=== PATIENT | male | born 1950 | race Caucasian/White ===

== ENCOUNTER 2018-07-02 14:47 | Inpatient (IN) | payer OTHER, MEDICARE ==
[~2018-07-02] VITALS: Ht 177.8 cm; Wt 119.0 kg
--- NOTE | ~2018-07-02 | D ---
[facility] [place] [address] [address] DISCHARGE SUMMARY Name: LAYNE BADILLO Room #: 218-P ADM IN M.R.#: [id number] Admission: 07/02/18 Attend Phys: Amanuel Segura MD, Discharge: Date of : 50 Report #: [id number] THIS REPORT FOR: //name// CC: Amanuel Segura Physician staff DELFINO Burroughs [facility]SE: The patient is a 68-year-old male patient of Dr. Burroughs's who was found to have noninvasively high-grade carotid stenosis by Dr. Burroughs, subsequently sent and I admitted him because of the velocity of greater than 500. He was initially placed on anticoagulation, taken to the catheterization lab. He had significant claudication issues also on the left buttock and some labile hypertension. Creatinine was 1.5. He underwent a carotid angiography, left renal stent and left common iliac stent for high-grade lesions. With minimal contrast, however, I did attempt intervention through a SETH to LAD, which was subtotaled in the distal third. I was unsuccessful there, but he had a large graft that was widely patent filling a diagonal and a large OM1, OM2. The PDA was occluded and the graft to the PDA was occluded. This was collaterally filled via the LAD, although was filled by bridging collaterals. Unfortunately, he did develop some ATN secondary to the contrast. Creatinine up to 3.2 and waiting for tomorrow's lab work. Once this heads down, we will discharge him on aspirin, Plavix and metoprolol 50; we are holding losartan currently, insulin, atorvastatin 40 and primidone 50 mg at night, Celexa, amlodipine 5; plus minus diuretic. For mild pulmonary venous congestion, was given IV Lasix, has improved his renal output tonight. I am expecting possible discharge in the a.m. He will be seen by my partner, Dr. Estrada. We are then scheduled for Dr. Palencia to perform carotid endarterectomy approximately 2 weeks. DISCHARGE DIAGNOSES: 1. High-grade left carotid stenosis ____ carotid endarterectomy in 2 weeks. 2. Coronary artery disease with prior coronary artery bypass graft and attempted angioplasty through left internal mammary artery to left anterior descending to a subtotal vessel, not successful. See above anatomy. 3. Mild ischemic cardiomyopathy. 4. Acute tubular necrosis secondary to contrast. 5. Hypertension with renal artery stenosis, status post right renal stent. 6. Peripheral vascular disease with left iliac stent placed. 7. Diabetes. RECOMMENDATIONS AND PLAN: As stated above, we will slowly reinstitute BILL, ARB that would be after carotid endarterectomy. Further recommendations per Renal. Carotid endarterectomy scheduled for approximately 2 weeks. We will continue dual antiplatelet therapy and surgery will be performed on dual antiplatelet therapy. [facility] [address] [place] [address] DISCHARGE SUMMARY Name: LAYNE BADILLO Room #: 218-P [facility] IN M.R.#: [id number] Admission: 07/02/18 Attend Phys: Amanuel Segura MD, Discharge: Date of : 50 Report #: [id number] Thank you for asking me to assist in this patient's care. By: 1730 1802 Amanuel Segura MD, FACC /nt
[2018-07-02 15:15] VITALS: BP 114/72
[2018-07-02 15:39] LABS: HEMATOCRIT 35.4 % (42.0-52.0); HEMOGLOBIN 12.3 gm/dL (14.0-18.0); MCH 31.6 pg (26.0-34.0); MCHC 34.8 g/dL (28.0-37.0); RBC 3.89 mil/uL (4.50-6.00); RDW 16.1 % (10.5-14.5); WBC 6.3 thou/uL (4.0-11.0)
[2018-07-02 15:52] LABS: ALBUMIN 3.7 g/dL (3.4-5.0); CALCIUM 9.2 mg/dL (8.5-10.1); CREATININE 1.5 mg/dL (0.7-1.3); POTASSIUM 4.5 mmol/L (3.5-5.1); TOTAL BILIRUBIN 0.9 mg/dL (<0.1-1.0); TOTAL PROTEIN 8.1 g/dL (6.4-8.2)
[2018-07-02] MEDS ORDERED: LEVEMIR SUBQ (16:28)
[2018-07-02] MEDS ORDERED: NOVOLOG100 UNIT/1 SUBQ (16:31)
[2018-07-02] MEDS ORDERED: NEURONTIN 300300 M1 PO (16:33)
[2018-07-02] MEDS ORDERED: LOPRESSOR50 PO (16:34)
[2018-07-02] MEDS ORDERED: PLAVIX 75 MG TA75 M1 PO (16:36)
[2018-07-02] MEDS ORDERED: POTASSIUM20 PO (16:36)
[2018-07-02] MEDS ORDERED: COZAAR 25 MG TA25 M1 PO (16:37)
[2018-07-02] MEDS ORDERED: LASIX 40 MG TAB40 M2 PO (16:38)
[2018-07-02] MEDS ORDERED: ATORVASTATIN CA40 MG PO (16:39)
[2018-07-02] MEDS ORDERED: CELEXA20 MG PO (16:39)
[2018-07-02] MEDS ORDERED: MYSOLINE50 MG PO (16:40)
[2018-07-02] MEDS ORDERED: NITROGLYCERIN0.4 MG SUBLING (16:40)
[2018-07-02] MEDS ORDERED: COLACE100 MG PO (16:41)
--- NOTE | 2018-07-02 17:38 | NUR ---
PT ARRIVED TO THE UNIT AT APPROX 1550 WITH BELONGINGS AND WITH DAUGHTER. PT AOX4, VSS, PT UP STANDYBY ASSIST TO AD RENAN. NO C/O PAIN. DENIES CHEST PAIN. NO SIGNS OF CARDIAC OR RESP DISTRESS NOTED. O2 SATS WNL ON ROOM AIR. IV PUT IN, TELEMETRY PUT ON, ADMIT STRIP PRINTED AND DOCUMENTED. WILL ACKNOWLEDGE AND IMPLEMENT ORDERS. WILL CONTINUE TO MONITOR.
--- NOTE | 2018-07-02 19:42 | NUR ---
PT CONTINUES TO BE AOX4, VSS, NO C/O PAIN, DENIES CHEST PAIN. NO S/SX OF DISTRESS. PT C/O SOA, O2 PUT ON 2L, PT UP TO SIDE OF BED, PT DID NOT C/O SOA ONCE ON SIDE OF BED. PHYSICIAN PAGED FOR ORDERS, STILL AWAITING RESPONSE- NIGHT NURSE AWARE. PLAN IS FOR PT TO HAVE CAROTID ANGIOGRAPHY 07/03, CONSENTS SIGNED. WILL CONTINUE TO MONITOR AND FOLLOW POC.
[2018-07-02 20:00] VITALS: BP 153/50
[2018-07-02 23:58] VITALS: BP 122/57
[2018-07-03 03:10] VITALS: BP 131/41
--- NOTE | 2018-07-03 03:54 | NUR ---
ASSUMED PT CARE AT 1900. PT A/OX4, VITAL SIGNS STABLE, ASSESSMENT CHARTED. NO COMPLAINTS OF CHEST PAIN. PT COMPLAINED OF SOME LE PAIN/NEUROPATHY. TYLENOL AND GABAPENTIN WAS GIVEN WHICH SEEMED TO HELP. PT RESTED WELL THROUGH THE NIGHT. CONSENTS SIGNED FOR ANGIOPLASTY. PROGRESSING TOWARD PLAN OF CARE. WILL CONTINUE TO MONITOR.
[2018-07-03 05:56] LABS: CALCIUM 8.4 mg/dL (8.5-10.1); CREATININE 1.5 mg/dL (0.7-1.3)
[2018-07-03 08:00] VITALS: BP 149/69
--- NOTE | 2018-07-03 08:25 | EKG ---
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1950 Requested By: Wendy Willett Order Number: [id number] MD: Hari Farmer Measurements Intervals [place] Rate: 63 P: 71 NE: 175 QRS: 9 QRSD: 98 T: 30 QT: 458 QTc: 469 Interpretive Statements Sinus rhythm Multiple ventricular premature complexes Abnormal R-wave progression, late transition Inferior infarct, old Baseline wander in lead(s) V2,V3 No previous ECG available for comparison Electronically Signed On 07-03-2018 8:25:21 MANAGER CASE by Hari Farmer [email or web address] <ELECTRONICALLY SIGNED> By: Hari Farmer MD 07/03/18 0825 6 6 Hari Farmer MD /CORY
--- NOTE | 2018-07-03 09:19 | 2DMMODE ---
[facility] [address] [place] [address] 2 D/M-MODE ECHOCARDIOGRAM Name: LAYNE BADILLO Room #: 218-P ADM IN M.R.#: [id number] Admission: 07/02/18 Attend Phys: Amanuel Segura, Discharge: Date of : 50 Date of Service: 07/03/1818 Report #: [id number] THIS REPORT FOR: //name// APPROVED REPORT Study performed: 07/03/2018 08:14:00 EXAM: Comprehensive 2D, Doppler, and color-flow Echocardiogram Patient Location: Bedside Room #: 218 Status: routine BSA: 2.41 HR: 62 bpm BP: 131/41 mmHg Other Information Study Quality: Fair Indications CAD Hypertension/HDD Echo Enhancing Agent Indication: Endocardial border delineation Agent(s) / Amount(s) Used: Optison 3 cc 2D Dimensions IVSd: 15.31 (7-11mm) LVOT Diam: 19.64 (18-24mm) LVDd: 41.41 mm PWd: 13.57 (7-11mm) Ascending Ao: 35.54 (22-36mm) LVDs: 29.65 (25-40mm) Aortic Root: 27.33 mm Aortic Valve AoV Peak Mango.: 2.31 m/s AO Peak Gr.: 21.35 mmHg LVOT Max P.39 mmHg AO Mean Gr.: 13.96 mmHg LVOT Mean P.63 mmHg AO V2 Mean: 1.62 m/s LVOT Max V: 0.89 m/s AO V2 VTI: 69.17 cm LVOT Mean V: 0.58 m/s GERRY (VTI): 1.04 cm2 LVOT V1 VTI: 23.77 cm GERRY Vmax: 1.17 cm2 SV (LVOT): 72.01 mL Pulmonary Valve PV Peak Mango.: 0.91 m/s PV Peak Gr.: 3.29 mmHg [facility] [address] [address] 2 D/M-MODE ECHOCARDIOGRAM Name: LAYNE BADILLO Room #: 218-P ADM IN M.R.#: [id number] Admission: 07/02/18 Attend Phys: Amanuel Segura, Discharge: Date of : 50 Date of Service: 07/03/18 0918 Report #: [id number] Tricuspid Valve TR Peak Mango.: 2.09 m/s TR Peak Gr.: 17.53 mmHg PA Pressure: 18.00 mmHg Left Ventricle The left ventricle is normal size. There is normal LV segmental wall motion. Moderate concentric left ventricular hypertrophy. The left ventricular systolic function is normal. The left ventricular ejection fraction is within the normal range. LVEF is 55-60%. This study is not technically sufficient to allow evaluation of the LV diastolic function. Right Ventricle Right ventricle is not well visualized. Right ventricular systolic function is grossly normal. Atria Left atrium is dilated. Right atrium is dilated. Aortic Valve Bioprosthetic aortic valve is present. No aortic regurgitation is present. There is no aortic valvular stenosis. Mitral Valve The mitral valve is normal in structure. Mild mitral regurgitation. No evidence of mitral valve stenosis. Tricuspid Valve The tricuspid valve is normal in structure. There is trace tricuspid regurgitation. Estimated PAP 18 mmHg. Plus the right atrial pressure. There is no pulmonary hypertension. Pulmonic Valve The pulmonary valve is normal in structure. Trace pulmonic regurgitation. Great Vessels The aortic root is normal in size. IVC is not well visualized. [facility] [address] [place] [address] 2 D/M-MODE ECHOCARDIOGRAM Name: LAYNE BADILLO Room #: 218-P ADM IN M.R.#: [id number] Admission: 07/02/18 Attend Phys: Amanuel Segura, Discharge: Date of : 50 Date of Service: 07/03/18 0918 Report #: [id number] Pericardium There is no pericardial effusion. <Conclusion> The left ventricle is normal size. Moderate concentric left ventricular hypertrophy. LVEF is 55-60%. This study is not technically sufficient to allow evaluation of the LV diastolic function. Right ventricle is not well visualized. Left atrium is dilated. Right atrium is dilated. No aortic regurgitation is present. Mild mitral regurgitation. There is trace tricuspid regurgitation. Estimated PAP 18 mmHg. Plus the right atrial pressure. There is no pulmonary hypertension. The aortic root is normal in size. There is no pericardial effusion. <ELECTRONICALLY SIGNED> By: Amanuel Segura MD, FACC 07/03/18917 7 7 Amanuel Segura MD, FACC /INF
[2018-07-03 12:14] VITALS: BP 132/56
[2018-07-03 17:49] VITALS: BP 160/62
[2018-07-03 19:23] VITALS: BP 111/50
--- NOTE | 2018-07-03 20:56 | NUR ---
ASSUMED CARE OF PT AT SHIFT CHANGE. ASSESSMENTS CHARTED, MEDS GIVEN PER JUL. PT AOX4, VSS, NO C/O PAIN. DENIES CHEST PAIN. PT ARRIVED BACK TO UNIT AT APPROX 1800. VSS, O2 SATS 70S-80S, NO C/O SOA, LUNGS SOUNDED WHEEZY. NOTIFIED, ORDERS RECEIVED. O2 SATS BACK UP TO 90S, LUNGS NO LONGER WHEEZY, PT DENIES ANY CONCERNS, NO SIGNS OF ANY DISTRESS NOTED. URINE OUTPUT ADEQUATE POST PROCEDURE. GROIN SITE CDI, NO HEMATOMA. WILL CONTINUE TO MONITOR AND FOLLOW POC. NO FURTHER NEEDS AT THIS TIME.
[2018-07-04 00:16] VITALS: BP 138/59
--- NOTE | 2018-07-04 03:50 | NUR ---
ASSUMED CARE 1899. VSS. ASSESSMENT CHARTED. PT DENIES CP, SOA, OR ANY CONCERNS. PT HAD HEADACHE EARLY THIS AM RATED 2/10, TYLENOL PER EMAR GIVEN. DAUGHTER AT BEDSIDE THROUGHOUT NIGHT, PT SLEEPING WELL. 2 L NC, CPAP AT NIGHT, LUNGS CL/DIM. VOIDING WELL PER URINAL. R GROIN CDI, NO HEMATOMA. PLAN FOR LABS THIS AM. WILL CONTINUE TO MONITOR AND WITH POC.
[2018-07-04 03:59] LABS: CALCIUM 8.7 mg/dL (8.5-10.1); CREATININE 1.7 mg/dL (0.7-1.3); POTASSIUM 4.6 mmol/L (3.5-5.1)
[2018-07-04 04:02] LABS: HEMATOCRIT 31.4 % (42.0-52.0); HEMOGLOBIN 10.7 gm/dL (14.0-18.0); MCHC 34.1 g/dL (28.0-37.0); MCV 90.8 fL (80.0-100.0); RBC 3.46 mil/uL (4.50-6.00); RDW 16.2 % (10.5-14.5); WBC 5.2 thou/uL (4.0-11.0)
[2018-07-04 04:43] VITALS: BP 151/35
[2018-07-04 08:07] VITALS: BP 136/61
[2018-07-04 11:13] LABS: APTT 28.7 Seconds (24.5-32.8); PROTIME 10.6 Seconds (9.3-11.4)
[2018-07-04 12:27] VITALS: BP 157/63
[2018-07-04 12:39] LABS: URINE BILIRUBIN NEGATIVE (Negative); URINE BLOOD TRACE (Negative); URINE CLARITY CLEAR; URINE COLOR YELLOW; URINE GLUCOSE-RANDOM* 1+ (Negative); URINE KETONES NEGATIVE (Negative); URINE LEUKOCYTES-REFLEX NEGATIVE (Negative); URINE NITRITE-REFLEX NEGATIVE (Negative); URINE PROTEIN (DIPSTICK) NEGATIVE (Negative); URINE UROBILINOGEN 0.2 E.U./dl (0.2-1.0)
--- NOTE | 2018-07-04 15:11 | NUR ---
ASSUMED CARE OF PT AT SHIFT CHANGE. ASSESSMENTS CHARTED. MEDS GIVEN PER JUL. PT AOX4, NO C/O PAIN, VSS, NO S/SX OF CARDIAC OR RESP DISTRESS NOTED. PT CURRENTLY ON , SATS WNL. PT DESATTED ONCE WHEN UP TO THE BATHROOM, O2 CAME BACK WNL AFTER. PT UP STANDYBY ASSIST, WALKED AROUND THE UNIT A COUPLE OF TIMES THIS SHIFT, TOLERATED WELL. GROIN SITE CONTINUES TO BE CDI, NO HEMATOMA. DAUGHTER AT BEDSIDE THROUGHOUT SHIFT. PT AND FAMILY UPDATED ON POC. WILL CONTINUE TO MONITOR AND FOLLOW POC.
[2018-07-04 17:36] VITALS: BP 163/69
[2018-07-04 19:27] VITALS: BP 167/64
[2018-07-05 04:07] LABS: CALCIUM 8.7 mg/dL (8.5-10.1); CREATININE 2.1 mg/dL (0.7-1.3); POTASSIUM 4.4 mmol/L (3.5-5.1); TOTAL BILIRUBIN 1.2 mg/dL (<0.1-1.0); TOTAL PROTEIN 6.2 g/dL (6.4-8.2)
--- NOTE | 2018-07-05 04:20 | NUR ---
PT. AOX4; NO C/O PAIN; ABLE TO REST DURING THE NIGHT; ASSESSMENT CHARGED; FOLLOWING POC; C-PAP USE DURING THE NIGHT.
[2018-07-05 04:27] VITALS: BP 161/49
[2018-07-05 08:47] VITALS: BP 152/91
--- NOTE | 2018-07-05 10:31 | NUR ---
Nutrition: pt admit with carotid stenosis and in need of L CEA. Hx CABG, PAD, CRI, DM. Seen for BMI 40.8, extreme class 3 obesity. Pt reports decreased appetite over admit, 30 % of meal this am. Encouraged ordering meals as desired. No prior weight change. Pt voices no questions related to diet. Significant hyperglycemia, BG 134-301. SSI. Current heart healthy diet, will add carb controlled. Consider low nutrition risk at this time.
[2018-07-05 10:36] LABS: ABSOLUTE NEUTROPHILS 4.5 thou/uL (1.4-8.2); BASOPHILS 0.6 % (0.0-2.0); EOSINOPHILS 2.6 % (0.0-3.0); HEMATOCRIT 33.4 % (42.0-52.0); HEMOGLOBIN 10.8 gm/dL (14.0-18.0); LYMPHOCYTES 15.5 % (24.0-44.0); MCH 30.2 pg (26.0-34.0); MCHC 32.4 g/dL (28.0-37.0); MCV 93.4 fL (80.0-100.0); MONOCYTES 11.4 % (1.0-8.0); PLATELET COUNT 155 thou/uL (150-400); POLYS 69.9 % (36.0-66.0); RBC 3.58 mil/uL (4.50-6.00); RDW 16.9 % (10.5-14.5); WBC 6.5 thou/uL (4.0-11.0)
--- NOTE | 2018-07-05 11:41 | CATHLAB ---
[facility] [place] [address] INVASIVE PROCEDURE REPORT Name: LAYNE BADILLO Room #: 218-P ADM IN M.R.#: [id number] Admission: 07/02/18 Attend Phys: Amanuel Segura, Discharge: Date of : 50 Date of Service: 07/05/18 1141 Report #: [id number] THIS REPORT FOR: //name// APPROVED REPORT Study performed: 07/03/2018 16:07:52 Patient Details Patient Status: In-Patient Room #: The patient is a 68 year-old male Event Personnel Amanuel Segura Ict Educator, , Cayetano Payne RN, Jaya Carey Monitor, Zoë Prasad RTR, GYMNASTICS INSTRUCTOR Scrub Procedures Performed Left Heart Cath Coronaries, Bypass Grafts [id number] [facility] Supravalvular Aortography Injection [id number] ISVA Indication Chest pain Procedure Narrative A PINNACLE 6FR Sheath #[id number] sheath was inserted into the RFA^. Coronary angiography was performed using coronary diagnostic catheters. The right coronary system was accessed and visualized with a JR4 catheter. The left coronary system was accessed and visualized with a JL4 catheter. An aortogram of the ascending aorta was performed. Closure device was deployed with a 6 Fr MYNXGRIP 6/7F #[id number]. The patient tolerated the procedure well and there were no complications associated with the procedure. There was no hematoma. Intraoperative Conscious Sedation Sedation start time: 16.31 Case end Time: 17.31 Fentanyl 100.0 mcg Versed 2.0 mg Fluoro Time: 22.46 minutes Dose: DAP 64111 cGycm2 2935 mGy Contrast Type and Amount: Visipaque 270 ml Hemodynamics The aortic pressure is 140/62 mmHg with a mean of 71 mmHg. [facility] [place] [address] INVASIVE PROCEDURE REPORT Name: LAYNE BADILLO Room #: 218-P [facility] IN M.R.#: [id number] Admission: 07/02/18 Attend Phys: Amanuel Segura, Discharge: Date of : 50 Date of Service: 07/05/18 1141 Report #: [id number] PCI Technique Lesion Percutaneous coronary intervention was performed on the Unspecified. A LAUNCHER 6FR MOISES #[id number] Guide Catheter was used to engage the ostium. A Luge Wire .014 x 182CM #[id number] Interventional Guidewire was used to cross the lesion. BALLOON DILATION A Balloon catheter Sprinter OTW 2.0 x 15 #[id number] was inserted and inflated up to chloe for seconds. WIRE DIDN'T CROSS Conclusion #1 supravalvular aortogram was performed did not cross the prosthetic aortic valve. Mild aortic insufficiency is noted. Aortic root exhibiting borderline dilatation #2 left main is large and mildly disease giving rise to LAD and circumflex which are essentially occluded #3 LAD occludes after the septal housing specialist and filled via a SETH graft #4 circumflex OM high-grade proximal OM lesion filled via a vein graft severely diseased circumflex small in the AV groove #4 the dominant right coronary artery occluded #5 the graft to the PDA is occluded PDA is filled via the left system collaterals filling predominately through septal perforators #6 LAD is filled via the SETH and then at the distal third is subtotally or totally occluded. This was an attempt at a PTCA. This is a chronic total occlusion with relatively minimal distribution. We'll continue to treat that medically. Is not able to cross this lesion #7 there is a large well preserved vein graft that is a triple sequential diagonal OM1 OM 2. All vessels well preserved. Recommendations and plan. I did attempt limited angioplasty of the LAD through the SETH. This was unsuccessful. Minimal area of distribution so would continue to treat this medically. The triple sequential graft is widely patent. The afognak right and graft to the right are occluded but filled via the left system. LV function noninvasively is only mildly reduced. Patient did have subtotal renal artery stenosis and iliac which were successfully stented. Follow peripheral stent protocol. Patient has [address] [address] INVASIVE PROCEDURE REPORT Name: LAYNE BADILLO Room #: 218-P ADM IN M.R.#: [id number] Admission: 07/02/18 Attend Phys: Amanuel Segura, Discharge: Date of : 50 Date of Service: 07/05/18 1141 Report #: [id number] high-grade carotid stenosis will have carotid endarterectomy one week. <ELECTRONICALLY SIGNED> By: Amanuel Segura MD, [facility] 07/05/18 1141 114 114 Amanuel Segura MD, FAC /INF
[2018-07-05 12:07] VITALS: BP 134/60
[2018-07-05 15:32] VITALS: BP 140/56
[2018-07-05 19:29] VITALS: BP 156/68
[2018-07-06 04:27] VITALS: BP 144/46
[2018-07-06 04:29] LABS: CALCIUM 8.5 mg/dL (8.5-10.1); PHOSPHORUS 5.2 mg/dL (2.5-4.9); POTASSIUM 4.8 mmol/L (3.5-5.1)
[2018-07-06 04:37] LABS: CREATININE 3.2 mg/dL (0.7-1.3)
[2018-07-06 05:19] LABS: PROT/CREAT RATIO 0.5; URINE CREATININE-RANDOM* 132.8 mg/dL
[2018-07-06 08:00] VITALS: BP 146/66
--- NOTE | 2018-07-06 08:16 | NUR ---
PT. AOX4; NO C/O PAIN; HS MEDICATION GIVEN; REFUSED C-PAP DURING THE NIGHT; O2 2.5L; ABLE TO REST DURING THE NIGHT; URINE SAMPLE COLLECTED IN THE MORNING; VOID 150CC; CREATININE 3.1; NEPHROLOGY INFORMED; NO NEW ORDERS; ASSESSMENT CHARGED; FOLLOWING POC.
--- NOTE | 2018-07-06 10:28 | NUR ---
Chart reviewed and case discussed with the care team. Apartment House Manager visited with the pt at bedside. He his A&ox4 and lives with his dtr/son in law and 4 grandkids. He helps care for the grandkids while they are at work. He reports being indep with gait and adl's. He is anticipating dc home soon and returning in a week or two for surgery, CEA. He has a cane and cpap at home but does not use home o2. He is receptive if needed at dc but is hopeful he can be weaned off o2. The pt is being seen by therapy today and is currently sitting up in a chair. He denies any dc needs or concerns and feels he is a little weak but close to his base line functionally. Cm role introduced. Will follow along should he need home o2 or HH at dc. Renal consult in progress for elevated cre.
[2018-07-06 13:20] VITALS: BP 123/55
--- NOTE | 2018-07-06 16:26 | HC ---
[facility] [place] [address] [place] [address] CONSULTATION Name: LAYNE BADILLO Room #: 218-P ADM IN M.R.#: [id number] Admission: 07/02/18 Attend Phys: Amanuel Segura MD, Discharge: Date of : 50 Report #: [id number] THIS REPORT FOR: //name// CC: Amanuel Segura Physician staff [facility] REFERRAL PHYSICIAN: Amanuel Segura M.D., F.A.C.C. REASON FOR REFERRAL: Hypoxia. HISTORY OF PRESENT ILLNESS: The patient is a 68-year-old white male with coronary artery disease, peripheral artery disease, now with hypoxia. A Pulmonary consultation was requested. The patient was admitted on 07/03/2018. He underwent angiographic evaluation. There was found to have carotid artery disease, at least 90% ulcerated stenosis involving his left carotid artery. The patient is scheduled to undergo a left carotid endarterectomy sometime soon. Postoperatively, he was doing fairly well until early this morning, was found to be more hypoxic, requiring O2. For that reason, a Pulmonary consultation was requested. The patient states that he has a long history of sleep apnea. He is compliant with the use of CPAP, though he did not use it last night. He also notes he has gained some weight, at least 10 pounds more recently. The patient also has smoked for about 40 years. He quit 6 years ago when he had a bypass surgery. He has never been diagnosed with chronic lung disease. Currently, he does have mild dyspnea but denies any chest pain or productive cough. He has never been oxygen dependent in the past. 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 ALLERGIES: None to medications. MEDICATIONS: List reviewed and this include Lipitor; Celexa; Plavix; Neurontin; Lopressor; primidone; Norvasc and Cozaar, which has been discontinued. FAMILY HISTORY: Notable for lung cancer in the father who had . [address] [address] CONSULTATION Name: LAYNE BADILLO Room #: 218-P [facility] IN M.R.#: [id number] Admission: 07/02/18 Attend Phys: Amanuel Segura MD, Discharge: Date of : 50 Report #: [id number] Mother had diabetes. She had . SOCIAL HISTORY: Tobacco history as mentioned above. He denies any alcohol abuse. REVIEW OF SYSTEMS: Notable for weight gain over the last year or so. Otherwise, 10-point system review negative. PHYSICAL EXAMINATION: GENERAL: He is awake and alert, in no distress. VITAL SIGNS: Temperature is 98.6 degrees Fahrenheit, pulse is 70, respiratory rate is 22, blood pressure 150/91 mmHg and saturation 96% on 2 liters of O2. HEENT: Unremarkable, normocephalic and atraumatic. NECK: Supple, without any lymphadenopathy or thyromegaly. CHEST: Breath sounds are fair, decreased in the bases. CARDIOVASCULAR: Normal S1 and S2. No murmurs or gallop. There is no JVD. There is no carotid bruit. Pulses are 2+/4+ bilaterally. ABDOMEN: Moderately obese, soft and nontender. No organomegaly or masses felt. GENITOURINARY: Deferred. RECTAL: Deferred. EXTREMITIES: There is no cyanosis or clubbing but notable for 2-3+ bilateral pretibial edema. NEUROLOGICAL: Grossly intact. RADIOLOGICAL DATA: Chest x-ray is notable for increased pulmonary vascular markings and cardiomegaly. Echocardiogram showed ejection fraction 55%, moderate concentric left ventricular hypertrophy, dilated left atrium, dilated right atrium, mild mitral regurgitation, pulmonary artery pressure measuring approximately 18 mmHg, otherwise unremarkable. LABORATORY DATA: Sodium 138, potassium 4.1, chloride 101, CO2 is 26, BUN is 32 and creatinine is 2.1 and admission was 1.5. Liver enzymes are grossly unremarkable. WBC is 6500, hemoglobin 10.8 and platelets are normal. IMPRESSION: 1. Acute hypoxic respiratory failure in this 68-year-old white male. He has a history of sleep apnea, probable chronic obstructive pulmonary disease with a long history of tobacco use. Chest x-ray shows increased pulmonary vascular markings along with 2-3+ bilateral lower extremity edema. Hypoxia is likely related to volume overload. Suspect underlying chronic obstructive pulmonary disease is contributing. No obvious evidence of pneumonia. 2. Sleep apnea, on continuous positive airway pressure. Note that he has gained weight recently. Given his history of heart disease, we would recommend reevaluating efficacy of sleep apnea treatment would be beneficial as an outpatient. 3. Long history of tobacco use, probable chronic obstructive pulmonary disease. [facility] [address] [place] [address] CONSULTATION Name: LAYNE BADILLO Room #: 218-P ADM IN M.R.#: [id number] Admission: 07/02/18 Attend Phys: Amanuel Segura MD, Discharge: Date of : 50 Report #: [id number] Recommend trial of bronchodilators. 4. Coronary artery disease, status post coronary artery bypass surgery in the past, mild cardiomyopathy, current findings suggest yegos-up-wvihpcv heart failure. 5. Lower extremity edema. Suspect qevly-sp-yrtcivl heart failure with probable right-sided heart failure given his history of sleep apnea, probable chronic obstructive pulmonary disease. 6. Peripheral artery disease, with multiple stents as outlined above. 7. Acute kidney injury/chronic kidney disease, recent angiographic studies. We will need to monitor renal status closely. RECOMMENDATIONS: Continue O2 to keep saturation 90%. We would recommend gentle diuresis. Initiate bronchodilator therapy. Continue home CPAP. The patient may need O2 temporarily. Otherwise, she is stable from pulmonary standpoint for discharge planning. We will be happy to see the patient outpatient followup regarding his oxygen use along with sleep apnea and probable COPD. Thank you for this consultation. <ELECTRONICALLY SIGNED> By: Joe Adams MD 07/06/18 1626 1241 [id number] Joe Adams MD /nt
[2018-07-06 17:20] VITALS: BP 137/52
--- NOTE | 2018-07-06 18:21 | NUR ---
PT ALERT AND ORIENTED TIMES FOUR. VSS, 95%2L, SR ON TELE. PT DENIES PAIN. PT UP IN THE CHAIR FOR MOST OF THE SHIFT. PT DID WALK AROUND THE UNIT WITH PT TODAY. PT TOLERATES MEDS AND MEALS. FAMILY AT BEDSIDE. PT SLOWLY PROGRESSING TOWRADS POC GOALS.
[2018-07-06 19:30] VITALS: BP 139/60
[2018-07-07 04:22] LABS: ALBUMIN 2.9 g/dL (3.4-5.0); CALCIUM 8.7 mg/dL (8.5-10.1); CREATININE 3.8 mg/dL (0.7-1.3); PHOSPHORUS 5.5 mg/dL (2.5-4.9); POTASSIUM 4.7 mmol/L (3.5-5.1)
[2018-07-07 04:41] LABS: HEMATOCRIT 30.5 % (42.0-52.0); HEMOGLOBIN 10.3 gm/dL (14.0-18.0); MCH 31.2 pg (26.0-34.0); MCHC 33.8 g/dL (28.0-37.0); MCV 92.3 fL (80.0-100.0); PLATELET COUNT 147 thou/uL (150-400); RBC 3.31 mil/uL (4.50-6.00); RDW 16.6 % (10.5-14.5); WBC 6.3 thou/uL (4.0-11.0)
[2018-07-07 05:09] VITALS: BP 151/58
--- NOTE | 2018-07-07 05:41 | NUR ---
PT. AOX4 DURING SHIFT CHANGE; NO C/O PAIN; HS MEDICATION GIVEN; VS WNL; REFUSED C-PAP DURING THE NIGHT; EDUCATED ABOUT THE IMPORTANCE OF USING ON A REGULAR BASIS; ASSESSMENT CHARGED; CREATININE 3.8; NEPHROLOGY AWARED OF IT; GOOD URINE OUT PUT THROUGH THE NIGHT; ABLE TO REST MOST OF THE NIGHT WITH EYES CLOSE; FOLLOWING POC; WILL PASS ON REPORT
[2018-07-07 05:47] LABS: ABSOLUTE NEUTROPHILS 4.4 thou/uL (1.4-8.2)
[2018-07-07 05:49] LABS: ANISOCYTOSIS 1+; PLATELET ESTIMATE DECREASED
[2018-07-07 08:32] VITALS: BP 135/55
[2018-07-07 12:55] VITALS: BP 129/69
[2018-07-07 16:15] VITALS: BP 142/64
--- NOTE | 2018-07-07 18:46 | NUR ---
PATIENT ALERT AND ORIENTED X4, SINUS RHYTHM ON FROZEN PIE MAKER. ON 2L NASAL CANNULA, SHORTNESS OF BREATH WITH MOVEMENT. TOLERATING DIET, COMPLAINING OF INDIGESTION. UP WITH STANDBY ASSISTANCE. PATIENT UPDATED ON THE PLAN OF CARE. NO SIGNS OF ACUTE DISTRESS NOTED AT THIS TIME. WILL CONTINUE TO MONITOR.
[2018-07-07 19:48] VITALS: BP 145/93
--- NOTE | 2018-07-08 03:22 | NUR ---
ASSUMED PT CARE AT 1900. PT A/OX4, VITAL SIGNS STABLE, ASSESSMENT CHARTED. NO COMPLAINTS OF CHEST PAIN/PAIN. PT HAD AN EPISODE OF A NOSE BLEED AND BELIEVED IT WAS BECAUSE OF DRY OXYGEN. HUMIDITY WAS ADDED TO HIS OXYGEN WHICH SEEMED TO HELP. NO FURTHER EPISODES OF NOSEBLEEDS. PT USED CPAPP AT HS. RESTED WELL THROUGH THE NIGHT. PROGRESSING TOWARD PLAN OF CARE. WILL CONTINUE TO MONITOR.
[2018-07-08 04:25] VITALS: BP 133/56
[2018-07-08 06:39] LABS: CALCIUM 8.8 mg/dL (8.5-10.1); CREATININE 3.8 mg/dL (0.7-1.3); PHOSPHORUS 5.5 mg/dL (2.5-4.9); POTASSIUM 5.4 mmol/L (3.5-5.1)
[2018-07-08 09:00] VITALS: BP 133/54
[2018-07-08 13:00] VITALS: BP 127/55
[2018-07-08 16:30] VITALS: BP 133/70
[2018-07-08 19:27] VITALS: BP 135/74
[2018-07-09 03:52] LABS: ALBUMIN 3.1 g/dL (3.4-5.0); CALCIUM 8.9 mg/dL (8.5-10.1); CREATININE 3.7 mg/dL (0.7-1.3); POTASSIUM 4.6 mmol/L (3.5-5.1)
[2018-07-09 03:54] VITALS: BP 122/63
--- NOTE | 2018-07-09 04:54 | NUR ---
ASSUMED PT CARE AT 1900. PT A/OX4, VITAL SIGNS STABLE, ASSESSMENT CHARTED. NO COMPLAINTS OF PAIN/CHEST PAIN. CPAP AT HS, RESTED WELL THROUGH THE NIGHT. PROGRESSING TOWARD PLAN OF CARE. WILL CONTINUE TO MONITOR.
[2018-07-09 07:18] VITALS: BP 135/61
[2018-07-09 11:40] VITALS: BP 119/51
--- NOTE | 2018-07-09 18:26 | NUR ---
PT CARE ASSUMED APPROX 0700. PT ALERT AND ORIENTED X4. DENIES PAIN AND SOA. VSS. BS ELEVATED AT TIMES THIS SHIFT. SSI USED TO CONTROL. PT UP WITH STEADY GAIT. REMAINS ON O2. AMBULATING IN HALLWAY. NO DISTRESS NOTED.
[2018-07-09 19:56] VITALS: BP 126/46
--- NOTE | 2018-07-10 03:19 | NUR ---
ASSUMED PT CARE AT 1900. PT A/OX4, VITAL SIGNS STABLE, ASSESSMENT CHARTED. NO COMPLAINTS OF PAIN, PT COMPLAINED OF SOME INTERMITENT WEAKNESS/SHALINESS IN HIS RIGHT HAND. CPAP AT HS. ON 2L WHEN AWAKE. PT RESTED WELL THROUGH THE NIGHT. PROGRESSING TOWARD PLAN OF CARE. WILL CONTINUE TO MONITOR.
[2018-07-10 04:27] LABS: CALCIUM 8.9 mg/dL (8.5-10.1); CREATININE 3.3 mg/dL (0.7-1.3); PHOSPHORUS 4.9 mg/dL (2.5-4.9); POTASSIUM 4.2 mmol/L (3.5-5.1)
[2018-07-10 05:27] VITALS: BP 131/57
[2018-07-10 05:47] LABS: ALBUMIN 3.8 g/dL (3.4-5.0)
[2018-07-10 08:00] VITALS: BP 117/56
[2018-07-10 12:00] VITALS: BP 107/56
[2018-07-10 16:00] VITALS: BP 122/35
[2018-07-10 19:19] VITALS: BP 118/46
--- NOTE | 2018-07-10 21:00 | NUR ---
PT DIURESISING WELL FROM LASIX...BLE WITH 2+ EDEMA...WILL MONITOR
[2018-07-11 04:07] VITALS: BP 100/36
[2018-07-11 04:26] LABS: ALBUMIN 3.4 g/dL (3.4-5.0); CALCIUM 8.7 mg/dL (8.5-10.1); CREATININE 3.1 mg/dL (0.7-1.3); PHOSPHORUS 6.2 mg/dL (2.5-4.9); POTASSIUM 4.1 mmol/L (3.5-5.1)
--- NOTE | 2018-07-11 05:19 | NUR ---
ASSUMED CARE OF PATIENT AT 1900. VSS, AFEBRILE. DENIES PAIN, SOA OR N/V. DID SAY HE HAD ONE EPISODE OF LOOSE STOOLS. IMMODIUM GIVEN, RELIEF OBTAINED. STEADY GAIT, NO CONCERNS AT THIS TIME. PROGRESSING WELL TOWARDS POC GOALS.
[2018-07-11 08:21] VITALS: BP 111/52
[2018-07-11] MEDS ORDERED: DEMADEX20 MG PO (09:11)
[2018-07-11] MEDS ORDERED: NORVASC5 MG PO (09:11)
[2018-07-11] MEDS ORDERED: ASPIR 8181 MG PO (09:11)
[2018-07-11] MEDS ORDERED: TOPROL XL25 MG PO (09:32)
[2018-07-11 10:23] VITALS: BP 111/52
--- NOTE | 2018-07-11 11:59 | NUR ---
ASSESSMENT DOCUMENTED. PT ALERT AND ORIENTED. DENIED HAVING PAIN OR DISCOMFORT. SAT 95% ON RA. NSR ON TELI. VSS. NO RESPITORY OR CARDIAC DISTRESS NOTED. ORDERS GIVEN TO DISCHARGE PT TO HOME. DISCHARGE ISTRUCTIONS GIVEN TO PT. PT VERBERLIZE UNDERSTANDING.
--- NOTE | 2018-07-13 09:17 | HC ---
[facility] [place] [address] CONSULTATION Name: LAYNE BADILLO Room #: 218-P [facility] IN M.R.#: [id number] Admission: 07/02/18 Attend Phys: Amanuel Segura MD, Discharge: 07/11/18 Date of : 50 Report #: [id number] THIS REPORT FOR: //name// CC: Amanuel Segura Physician staff DELFINO DANIELLEWELLINGTON DATE OF SERVICE: 07/05/2018 REASON FOR CONSULTATION: Elevating creatinine. HISTORY OF PRESENT ILLNESS: This 68-year-old gentleman with longstanding diabetes and peripheral neuropathy underwent angiographic procedures yesterday. He had a baseline creatinine of 1.5. He had a left renal artery stent, left iliac stent and also angiography of his carotids, etc., done yesterday. His creatinine nanda to 2.1. We are seeing him in consultation. There is no toe or foot pain. PAST MEDICAL HISTORY: Longstanding diabetes mellitus, previous coronary bypass, which he had 7 years ago at . Diabetes complicated by peripheral neuropathy. No history of hypertension. Also, has a history of obstructive sleep apnea by history. HOME MEDICATIONS: Listed include Lipitor 40 mg daily, Celexa 20 mg daily, Plavix 75 mg daily, furosemide 40 mg daily, gabapentin 300 mg b.i.d., insulin, losartan 25 mg daily, metoprolol 50 mg daily, potassium 20 mEq daily, primidone 50 mg at bedtime. FAMILY HISTORY: Mother had cirrhosis and diabetes. Father from lung cancer. Siblings okay. SOCIAL HISTORY: Former smoker, quit 7 years ago. No substantial alcohol. He is retired, living in [place], [place]. REVIEW OF SYSTEMS: GENERAL: He has been feeling reasonably well. EYES: Vision has been okay. He does have cataracts. ENT: Hearing okay, swallows okay. No mouth sores or ulcers. ENDOCRINE: No thyroid disease. Does have the diabetes. RESPIRATORY: Occasional wheezing. CARDIAC: No chest pain or angina. GASTROINTESTINAL: No nausea, vomiting, diarrhea, bloody stools or ulcers. GENITOURINARY: Good urinary stream. No history of prostate problems. NEUROLOGIC: Has peripheral neuropathy up to about his upper calf level. MUSCULOSKELETAL: No arthritis. Does have swelling in his legs chronically. [address] [address] CONSULTATION Name: LAYNE BADILLO Room #: 218-P [facility] IN M.R.#: [id number] Admission: 07/02/18 Attend Phys: Amanuel Segura MD, Discharge: 07/11/18 Date of : 50 Report #: [id number] PHYSICAL EXAMINATION: GENERAL: This is a somewhat overweight reasonably well-appearing gentleman, in no acute distress. SKIN: Unremarkable. Otherwise, there is little bit of erythema below the mid barrera level. SKELETAL: Shows him to be well developed, well nourished: No amputations. HEENT: Extraocular movements are full. Vision is intact. No scleral icterus. Hearing is intact. Mucous membranes are moist. Tongue, buccal mucosa are benign. NECK: Supple. He does have a left carotid bruit rather easily heard. CHEST: Clear to auscultation. HEART: Regular. ABDOMEN: Soft and nontender. EXTREMITIES: Show 1+ peripheral edema bilaterally and symmetrically. NEUROLOGIC: Shows numbness below his mid barrera level. LABORATORY DATA: The creatinine was 1.5. It is up to 2.1. The initial urinalysis was benign. Electrolytes are okay. Albumin only 3. ASSESSMENT: 1. Acute and chronic kidney disease. Creatinine was elevated somewhat to start. This could be dye nephropathy, there could be of course cholesterol emboli, he is volume overloaded already at this point. I would be hesitant to add any further IV fluids at this time. Medications will be reviewed, probably should stay off of renin angiotensin drugs at least in the short term and these are being appropriately held currently and we will continue to follow closely. 2. Diabetes mellitus with peripheral neuropathy. 3. Diffuse atherosclerosis. 4. Left carotid ulcerative plaque, which will require carotid endarterectomy. 5. History of coronary artery bypass surgery. <ELECTRONICALLY SIGNED> By: Amanuel Posadas MD 07/13/18 0917 1027 1752 Amanuel Posadas MD /nt
== END 2018-07-11 12:10 | disposition home or self-care (01) | DRG 37 ==
LOC: 2N 14:47 → ENTRNSPT 07-11 11:56 → EDTRNSPTSTS 07-11 11:59 → 2N 07-11 12:10
PROVIDERS: Hospitalist; Internal Medicine Cardiovascular Disease; Internal Medicine Nephrology; Nurse Practitioner Adult Health; Surgery Vascular Surgery; ADMIT Internal Medicine Cardiovascular Disease
PROC: 047J3DZ Dilation of Left External Iliac Artery with Intraluminal Device, Percutaneous Approach (ICD-10-PCS; principal; 2018-07-03)
PROC: B31Q1ZZ Fluoroscopy of Cervico-Cerebral Arch using Low Osmolar Contrast (ICD-10-PCS; principal; 2018-07-03)
PROC: B31F1ZZ Fluoroscopy of Left Vertebral Artery using Low Osmolar Contrast (ICD-10-PCS; principal; 2018-07-03)
PROC: B3151ZZ Fluoroscopy of Bilateral Common Carotid Arteries using Low Osmolar Contrast (ICD-10-PCS; principal; 2018-07-03)
PROC: 5A09357 Assistance with Respiratory Ventilation, Less than 24 Consecutive Hours, Continuous Positive Airway Pressure (ICD-10-PCS; principal; 2018-07-03)
PROC: 047A3DZ Dilation of Left Renal Artery with Intraluminal Device, Percutaneous Approach (ICD-10-PCS; principal; 2018-07-03)
PROC: B41F1ZZ Fluoroscopy of Right Lower Extremity Arteries using Low Osmolar Contrast (ICD-10-PCS; principal; 2018-07-03)
PROC: B41G1ZZ Fluoroscopy of Left Lower Extremity Arteries using Low Osmolar Contrast (ICD-10-PCS; principal; 2018-07-03)
PROC: B4181ZZ Fluoroscopy of Bilateral Renal Arteries using Low Osmolar Contrast (ICD-10-PCS; principal; 2018-07-03)
PROC: 5A09357 Assistance with Respiratory Ventilation, Less than 24 Consecutive Hours, Continuous Positive Airway Pressure (ICD-10-PCS; 2018-07-04)
PROC: B2131ZZ Fluoroscopy of Multiple Coronary Artery Bypass Grafts using Low Osmolar Contrast (ICD-10-PCS; 2018-07-05)
PROC: B2111ZZ Fluoroscopy of Multiple Coronary Arteries using Low Osmolar Contrast (ICD-10-PCS; 2018-07-05)
PROC: 02703ZZ Dilation of Coronary Artery, One Artery, Percutaneous Approach (ICD-10-PCS; 2018-07-05)
PROC: B2181ZZ Fluoroscopy of Left Internal Mammary Bypass Graft using Low Osmolar Contrast (ICD-10-PCS; 2018-07-05)
PROC: 4A023N7 Measurement of Cardiac Sampling and Pressure, Left Heart, Percutaneous Approach (ICD-10-PCS; 2018-07-05)
DX: I65.22 Occlusion and stenosis of left carotid artery (principal); N17.0 Acute kidney failure with tubular necrosis; J96.01 Acute respiratory failure with hypoxia; I50.43 Acute on chronic combined systolic (congestive) and diastolic (congestive) heart failure; I13.0 Hypertensive heart and chronic kidney disease with heart failure and stage 1 through stage 4 chronic kidney disease, or unspecified chronic kidney disease; E11.42 Type 2 diabetes mellitus with diabetic polyneuropathy; G47.33 Obstructive sleep apnea (adult) (pediatric); N18.9 Chronic kidney disease, unspecified; E11.22 Type 2 diabetes mellitus with diabetic chronic kidney disease; I25.10 Atherosclerotic heart disease of native coronary artery without angina pectoris; E11.51 Type 2 diabetes mellitus with diabetic peripheral angiopathy without gangrene; I25.5 Ischemic cardiomyopathy; I70.1 Atherosclerosis of renal artery; E66.9 Obesity, unspecified; E78.5 Hyperlipidemia, unspecified; E87.5 Hyperkalemia; Z68.37 Body mass index [BMI] 37.0-37.9, adult; Z95.1 Presence of aortocoronary bypass graft; Z87.891 Personal history of nicotine dependence; Z79.4 Long term (current) use of insulin; Z79.02 Long term (current) use of antithrombotics/antiplatelets; Z79.82 Long term (current) use of aspirin; Z79.899 Other long term (current) drug therapy; Z83.3 Family history of diabetes mellitus; Z83.79 Family history of other diseases of the digestive system; Z80.1 Family history of malignant neoplasm of trachea, bronchus and lung
CPT/HCPCS: 10081; 10797

== ENCOUNTER 2018-07-31 05:21 | Inpatient (IN) | payer OTHER, MEDICARE ==
[2018-07-24 10:34] LABS: ALBUMIN 3.8 g/dL (3.4-5.0); CALCIUM 9.1 mg/dL (8.5-10.1); CREATININE 1.5 mg/dL (0.7-1.3); POTASSIUM 4.1 mmol/L (3.5-5.1); TOTAL BILIRUBIN 0.6 mg/dL (<0.1-1.0); TOTAL PROTEIN 7.8 g/dL (6.4-8.2)
[2018-07-31] VITALS (16 sets, daily range): BP systolic 119–163; BP diastolic 42–60
[~2018-07-31] VITALS: Ht 177.8 cm; Wt 124.8 kg
[~2018-07-31 05:21] MED LIST: ASPIR 8181 MG PO; ATORVASTATIN CA40 MG PO; CELEXA20 MG PO; COLACE100 MG PO; COZAAR 25 MG TA25 M1 PO; DEMADEX20 MG PO; LASIX 40 MG TAB40 M2 PO; LEVEMIR SUBQ; LOPRESSOR50 PO; LOSARTAN POTAS100 MG PO; MYSOLINE50 MG PO; NEURONTIN 300300 M1 PO; NITROGLYCERIN0.4 MG SUBLING; NORVASC5 MG PO; NOVOLOG100 UNIT/1 SUBQ; PLAVIX 75 MG TA75 M1 PO; POTASSIUM20 PO; TOPROL XL25 MG PO
--- NOTE | 2018-07-31 13:59 | O ---
[facility] [place] [address] OPERATIVE REPORT Name: JUSTINOLAYNE Room #: 243-P [facility] IN M.R.#: [id number] Admission: 07/31/18 ������������������ Attend Phys: Layne Price MD Discharge: ������������������ Date of : 50 Report #: [id number] THIS REPORT FOR: //name// CC: Amanuel Price Physician staff DELFINO WEST DATE OF SERVICE: 07/31/2018 PREOPERATIVE DIAGNOSIS: Left carotid artery stenosis. POSTOPERATIVE DIAGNOSIS: Left carotid artery stenosis. PROCEDURE: Left carotid endarterectomy with patch closure. SURGEON: Layne Price M.D. MARKETING EXECUTIVE: Rahul Flores. ANESTHESIA: General. INDICATIONS: The patient is a 68-year-old with asymptomatic, but severe left internal carotid artery stenosis. This is an ulcerated plaque that measures at least 90%. The patient had transient renal dysfunction after his recent arteriogram. 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 The contralateral carotid has trivial disease. FINDINGS AND TECHNIQUE: After general anesthesia was established, an oblique left neck incision was made. Common facial vein was divided. Common internal and external carotid arteries were identified and controlled. 10,000 units of heparin were given. When the internal carotid was occluded, no EEG changes were noted. Continuous electroencephalographic monitoring was performed during the procedure and the carotid vessels were occluded. No EEG changes were noted. The carotid arteriotomy was made. The endarterectomy was performed without creating a distal flap. Neointima was inspected and all loose debris was removed. Tacking sutures were placed at the transition zone. The arteriotomy was closed with running Prolene and a thin walled pericardial patch. Prior to finishing the closure, the carotid vessels were backbled and the artery was flushed with heparinized saline. Flow was established first [facility] [address] [place] [address] OPERATIVE REPORT Name: LAYNE BADILLO Room #: 243-P [facility] IN M.R.#: [id number] Admission: 07/31/18 ������������������ Attend Phys: Layne Price MD Discharge: ������������������ Date of : 50 Report #: [id number] through the external, then the internal carotid artery. 50 mg of protamine was given. When hemostasis was satisfactory, a [place] drain was brought out through the bottom pole of the incision. The wound was closed in layers. The patient was taken to the recovery area where his neurologic progress was monitored. All counts reported as correct. ��������������������������������������������� <ELECTRONICALLY SIGNED> ���������������������������������������� By: Layne Price MD ��������������������������������������������� 07/31/18 1359 1110 1236 Layne Price MD /nt
--- NOTE | 2018-07-31 18:41 | NUR ---
PT ADMITTED TO ROOM 243 POST L CAROTID ENDARTECTOMY. PT HAS L RAD ANGEL. CARDENE GTT. INSULIN GTT STARTED. SR ON TELE. PT HAS REQUIRED INCREASED OXYGEN DEMANDS SINCE ADMISSION, IS NOW ON 10L HIGH FLOW NC. PT C/O OF PAIN TO URETHRA, TAYLOR CATHETER D/C'D, NO VOID YET. PT HAS DENIED PAIN. DR MARTINEZ AND ARNIE BERNSTEIN HAVE CHANGED DRESSING TO L NECK TWICE SINCE ARRIVING ON THE FLOOR. PT REFUSED DINNER TRAY BUT HAS SIPPED ON CLR LIQUIDS AND TOLERATED WELL
[2018-08-01] VITALS (26 sets, daily range): BP systolic 118–179; BP diastolic 44–75
[2018-08-01 04:33] LABS: HEMOGLOBIN 10.8 gm/dL (14.0-18.0); MCH 31.3 pg (26.0-34.0); MCHC 33.7 g/dL (28.0-37.0); RBC 3.44 mil/uL (4.50-6.00); RDW 15.8 % (10.5-14.5); WBC 8.4 thou/uL (4.0-11.0)
[2018-08-01 04:38] LABS: CALCIUM 8.4 mg/dL (8.5-10.1); CREATININE 1.4 mg/dL (0.7-1.3); MAGNESIUM 1.9 mg/dL (1.8-2.4); POTASSIUM 4.6 mmol/L (3.5-5.1)
--- NOTE | 2018-08-01 07:39 | NUR ---
PT A&O X4, DENIES PAIN AND NAUSEA. LEFT CAROTID DRESSING REINFORCED EARLY IN THE NIGHT, AND DID NOT REQUIRE TO BE CHANGED/REINFORCED AGAIN OVERNIGHT. ON CARDENE GTT TO KEEP SBP BELOW 130. INSULIN GTT TITRATED ACCORDING TO HOURLY BLOOD GLUCOSE. BLOOD GLUCOSE IN TARGET RANGE FOR THE LAST SEVERAL HOURS ON 1 UNIT/HR. PT WORE CPAP OVERNIGHT WITH OXYGEN. DOWN TO 7L O2 THIS MORNING. DR. MARTINEZ SAW PT THIS MORNING AND REMOVED CHETNA DRAIN. ASSESSMENTS AND VITALS DOCUMENTED. WILL CONTINUE TO MONITOR.
--- NOTE | 2018-08-01 15:37 | NUR ---
PT A/O X 4. SR ON TELE. DENIES PAIN. O2 TITRATED DOWN TO 4L NC THIS SHIFT. PT CONT TO HAVE A PRODUCTIVE COUGH. L RADIAL ANGEL D/C'D, NO COMPLICATIONS. TAYLOR REMAINS IN PLACE, FLOMAX STARTED TODAY, PLAN TO REMOVE TOMORROW. PT TRANSFERRING TO CCU ROOM 211. REPORT CALLED. DAUGHTER AWARE OF TRANSFER. ALL BELONGINGS PACKED TO GO WITH PT.
--- NOTE | 2018-08-01 17:43 | NUR ---
PATIENT TRANSFERED FROM ICU. ALERT AND ORIENTED. RECEIVED PRN PAIN MED FOR GENERALISED PAIN. NSR ON TELI. NO CONCERNS AT THIS TIME. WILL CONTINUE TO MONITOR.
[2018-08-02 04:08] VITALS: BP 140/55
--- NOTE | 2018-08-02 04:25 | NUR ---
PT. A0X4; NO C/O PAIN; HS MEDICATION GIVEN; O2 SAT ABOVE 90'S ON 4L; O2 SAT ON THE 70'S WITHOUT O2 OR CPAP; IS ENCOURAGE; DRESSING SATURATED; CHANGED IT PER ORDER; ABLE TO REST MOST OF THE NIGHT; ASSESSMENT CHARGED; FOLLOWING POC; WILL PASS ON REPORT.
[2018-08-02 08:08] VITALS: BP 147/53
--- NOTE | 2018-08-02 11:07 | PATH ---
[facility] [address] [place] [address] PATHOLOGY RPT PROCEDURE Name: LAYNE BADILLO Room #: 211-P [facility] IN M.R.#: [id number] ������������������ Admission: 07/31/18 ������������������ Date of : 50 Discharge: Report #: [id number] Path Case #: [id number] [facility] Accession Number: [id number] . 01 Material submitted: . LEFT CAROTID PLAQUE . 01 Clinical history: . Left carotid stenosis . 02 Diagnosis: Left carotid plaque, carotid endarterectomy: - Calcific atherosclerosis, consistent with plaque material. (IUV:pit 08/01/2018) QTP/08/01/2018 . 02 Electronically signed: . Bharati Ruiz MD, Pathologist NPI- [id number] . 01 Gross description: . The specimen is received in formalin, labeled "Layne Badillo, left carotid plaque" and consists of a rubbery-calcified segment of pink-yellow tissue measuring 3.6 x 0.8 x 0.8 cm. Sausage Machine Operator sections are submitted in A1 following decalcification. (SDY; 07/31/2018) SYU/SYU . 02 Pathologist provided ICD-10: I65.22 . 02 CPT . 123005, [id number] Specimen Comment: A courtesy copy of this report has been sent to Specimen Comment: [phone], , . Specimen Comment: Report sent to ,DR BARILLAS / DR WEST Specimen Comment: A duplicate report has been generated due to demographic updates. Performed at: [address], [place] [id number] MD Baldemar Jamison MD Phone: [phone] Performed at: [address] [id number] MD Bharati Ruiz MD Phone: [phone]
[2018-08-02 12:24] VITALS: BP 154/32
[2018-08-02 12:55] VITALS: BP 154/32
[2018-08-02 13:33] VITALS: BP 154/32
--- NOTE | 2018-08-02 13:35 | NUR ---
pt dcing home today with his dtr. pt agreeable to home o2 and referral called and faxed to [facility]. Their liason will deliever a portable tank to the room. The [facility] office will deliever his concentrator to home. no other needs noted.
--- NOTE | 2018-08-02 15:01 | NUR ---
ASSESSMENT DOCUMENTED. PT ALERT AND ORIENTED. VSS. SOB NOTED WITH ACTIVITY. AMBULATED X2 THIS AM. TAYLOR TAKEN OUT. PT HAS BEEN ABLE TO VOID NUMEROUS TIMES. SEEN BY DR. MARTINEZ AND DR. SOLANO. ORDERS GIVEN TO DISCHARGE PT TO HOME. DISCHARGE INSTRUCTIONS GIVEN TO PT. PT VERBERLIZE UNDERSTANDING. PT LEFT THE FACILITY ACCOMPANIED BY THE DAUGHTER.
== END 2018-08-02 15:04 | disposition home or self-care (01) | DRG 39 ==
LOC: TBA 05:21 → ICU 05:21 → PRE 05:38 → ICU 13:39 → PRE 15:58 → 2N 08-01 16:32 → PRE 08-02 12:47 → ENTRNSPT 08-02 14:37 → EDTRNSPTSTS 08-02 14:40 → 2N 08-02 15:04
PROVIDERS: Physician Assistant; ADMIT Surgery Vascular Surgery
PROC: 03UL0KZ Supplement Left Internal Carotid Artery with Nonautologous Tissue Substitute, Open Approach (ICD-10-PCS; principal; 2018-07-31)
PROC: 03CL0ZZ Extirpation of Matter from Left Internal Carotid Artery, Open Approach (ICD-10-PCS; principal; 2018-07-31)
DX: I65.22 Occlusion and stenosis of left carotid artery (principal); I10 Essential (primary) hypertension; E78.5 Hyperlipidemia, unspecified; I25.10 Atherosclerotic heart disease of native coronary artery without angina pectoris; E11.51 Type 2 diabetes mellitus with diabetic peripheral angiopathy without gangrene; G47.33 Obstructive sleep apnea (adult) (pediatric); N40.0 Benign prostatic hyperplasia without lower urinary tract symptoms; F32.9 Major depressive disorder, single episode, unspecified; F41.9 Anxiety disorder, unspecified; Z95.5 Presence of coronary angioplasty implant and graft; Z87.891 Personal history of nicotine dependence; Z95.1 Presence of aortocoronary bypass graft; Z95.820 Peripheral vascular angioplasty status with implants and grafts; I25.2 Old myocardial infarction; Z79.899 Other long term (current) drug therapy
CPT/HCPCS: 10078; 10081; 47375; 48888; 50010; 50101; 50386; 50417; 50455; 51301; 51751; 52279; 54118; 56524; 56526; 56528; 56534; 62110; 62900; 65020; 65040; 70005

== ENCOUNTER → 2018-12-03 | Outpatient (CLI) | payer OTHER, MEDICARE ==
[~2018-12-03] VITALS: Ht 177.8 cm; Wt 124.7 kg
[2018-12-03 08:21] VITALS: BP 145/62
[2018-12-03 08:36] LABS: HEMATOCRIT 37.9 % (42.0-52.0); HEMOGLOBIN 12.6 gm/dL (14.0-18.0); MCH 30.5 pg (26.0-34.0); MCHC 33.2 g/dL (28.0-37.0); MCV 91.8 fL (80.0-100.0); RBC 4.12 mil/uL (4.50-6.00); RDW 14.7 % (10.5-14.5)
[2018-12-03 08:45] LABS: CALCIUM 8.9 mg/dL (8.5-10.1); POTASSIUM 4.7 mmol/L (3.5-5.1)
== END | disposition home or self-care (01) ==
LOC: SPEC 07:24
PROVIDERS: Nuclear Medicine Nuclear Cardiology
DX: I70.248 Atherosclerosis of native arteries of left leg with ulceration of other part of lower leg (principal); I70.1 Atherosclerosis of renal artery; I25.10 Atherosclerotic heart disease of native coronary artery without angina pectoris; I10 Essential (primary) hypertension; E78.00 Pure hypercholesterolemia, unspecified; J44.9 Chronic obstructive pulmonary disease, unspecified; E11.51 Type 2 diabetes mellitus with diabetic peripheral angiopathy without gangrene; E11.00 Type 2 diabetes mellitus with hyperosmolarity without nonketotic hyperglycemic-hyperosmolar coma (NKHHC); Z87.891 Personal history of nicotine dependence; Z83.3 Family history of diabetes mellitus; Z79.4 Long term (current) use of insulin; Z95.1 Presence of aortocoronary bypass graft; Z98.890 Other specified postprocedural states; Z80.1 Family history of malignant neoplasm of trachea, bronchus and lung; Z79.899 Other long term (current) drug therapy; Z79.82 Long term (current) use of aspirin

== ENCOUNTER → 2018-12-10 | Outpatient (CLI) | payer OTHER, MEDICARE ==
[~2018-12-10] VITALS: Ht 177.8 cm; Wt 124.7 kg
[2018-12-10 07:22] VITALS: BP 184/74
[2018-12-10 07:34] LABS: HEMATOCRIT 37.8 % (42.0-52.0); HEMOGLOBIN 12.7 gm/dL (14.0-18.0); MCH 30.6 pg (26.0-34.0); MCHC 33.5 g/dL (28.0-37.0); MCV 91.4 fL (80.0-100.0); RBC 4.13 mil/uL (4.50-6.00); RDW 15.1 % (10.5-14.5); WBC 7.4 thou/uL (4.0-11.0)
[2018-12-10 07:42] LABS: CALCIUM 9.5 mg/dL (8.5-10.1); CREATININE 1.7 mg/dL (0.7-1.3); POTASSIUM 4.6 mmol/L (3.5-5.1)
== END | disposition home or self-care (01) ==
LOC: SPEC 00:33
PROVIDERS: Nuclear Medicine Nuclear Cardiology
DX: I70.211 Atherosclerosis of native arteries of extremities with intermittent claudication, right leg (principal); I70.1 Atherosclerosis of renal artery; M79.604 Pain in right leg; E11.9 Type 2 diabetes mellitus without complications; I15.0 Renovascular hypertension; I10 Essential (primary) hypertension; I25.2 Old myocardial infarction; F32.9 Major depressive disorder, single episode, unspecified; G47.30 Sleep apnea, unspecified; G62.9 Polyneuropathy, unspecified; E78.5 Hyperlipidemia, unspecified; Z95.1 Presence of aortocoronary bypass graft; Z87.891 Personal history of nicotine dependence; Z95.2 Presence of prosthetic heart valve; Z98.890 Other specified postprocedural states; Z79.899 Other long term (current) drug therapy